=== PATIENT | female | born 1970 | race African-American/Black ===

== ENCOUNTER 2019-05-23 18:23 | Emergency (ER) | payer MEDICAID ==
[~2019-05-23] VITALS: Ht 167.6 cm; Wt 126.0 kg
[2019-05-23 18:32] VITALS: BP 142/99
[2019-05-23] MEDS ORDERED: ACETAMINOPHEN 325MG TABLET ONE (18:40)
[2019-05-23] MEDS ORDERED: IBUPROFEN 600MG TABLET PO ONE (19:45)
[2019-05-23] MEDS ORDERED: ALBUTEROL (0.083%) 2.5MG/3ML NEB HHN STA (19:52)
[2019-05-23] MEDS ORDERED: IPRATROPIUM BROMIDE (0.02%) 0.5MG/2.5ML NEB HHN STA (19:52)
== END 2019-05-23 21:59 | disposition home or self-care (01) ==
LOC: ER 19:03
DX: J18.9 Pneumonia, unspecified organism (principal); R53.1 Weakness; I10 Essential (primary) hypertension
CPT/HCPCS: 71045; 87070; 87430; 87804; 94640; 99284; J7611; Z7610